=== PATIENT | female | born 1950 | race Caucasian/White ===

== ENCOUNTER 2022-12-10 06:19 | Inpatient (IN) | payer MEDICARE, SELFPAY ==
[2022-12-10] MEDS ORDERED: Diltiazem 125 MG/25 ML SDV ONE (06:39)
[2022-12-10] MEDS ORDERED: methylPREDNISolone Sod Succ/PF 125 MG/2 ML VIAL ONE ×2 (06:44→08:47)
[2022-12-10 06:56] LABS: Actual Bicarbonate (HCO3v) 18.8 mEq/L (22-28); Calcium, Ionized (venous) 0.99 mmol/L (1.16-1.32); Chloride (VBG) 104 mmol/L (98-106); Hematocrit-VBG 44 % (36.0-47.0); Hemoglobin (Hb) 14.9 g/dL (11.7-16.1); Potassium (VBG) 3.88 mmol/L (3.70-5.30); Sodium 133.4 mmol/L (133-146); pH (venous) 7.432 (7.32-7.43)
[2022-12-10] MEDS ORDERED: Ipratropium/Albuterol 3 ML NEB ONE (07:01)
[2022-12-10 07:06] LABS: #Eosinphils 0.6 thou/uL (0.0-0.7); #Monocytes 0.7 thou/uL (0.11-0.59); #Neutrophils 5.9 thou/uL (1.40-6.50); %Basophils 0.3 % (0.0-1.0); %Eosinophils 6.4 % (0.0-10.0); %Lymphocytes 21.7 % (21.0-51.0); %Monocytes 7.7 % (0.0-10.0); %Neutrophils 63.8 % (42.0-75.0); Hemoglobin 14.7 g/dL (12.0-16.0); Mean Corpuscular HGB CONC 34.4 g/dL (32.0-36.0); Mean Corpuscular Hemoglobin 32.3 pg (27.0-31.0); Mean Corpuscular Volume 94.1 fl (78.0-98.0); Mean Platelet Volume 7.2 fL (7.4-10.4); Platelet Count 190 10x3/uL (130-400); RBC Distribution Width 12.2 % (11.5-14.5); Red Blood Cell (RBC) Count 4.54 mill/uL (4.20-5.40); White Blood Cell (WBC) Count 9.3 10x3/uL (4.8-10.8)
[2022-12-10 07:07] LABS: ALT (SGPT) 9 U/L (8-55); AST (SGOT) 16 U/L (5-34); Albumin 3.8 g/dL (3.4-4.8); Alkaline Phosphatase 89 U/L (40-110); Anion Gap 15 mmol/L (10-20); BUN (Urea Nitrogen) 29 mg/dL (9.8-20.1); Bilirubin, Total 0.3 mg/dL (0.2-1.2); CK (CPK) 31 U/L (29-168); Calc. Creatinine Clearance 0 mL/min (70-130); Calcium 8.6 mg/dL (7.8-10.44); Carbon Dioxide 21 mmol/L (23-31); Chloride 106 mmol/L (98-107); Estimated GFR 37; Glucose 121 mg/dL (83-110); Potassium 4.1 mmol/L (3.5-5.1); Protein, Total 5.8 g/dL (5.8-8.1); Sodium 138 mmol/L (136-145)
[2022-12-10 07:08] LABS: Acetaminophen Less than 10.0 mcg/mL (10.0-30.0); Alcohol Less than 10 mg/dL (Less than 10); Salicylate Less than 8.0 mg/dL (15.0-30.0)
[2022-12-10 07:11] LABS: INR-International Normal Ratio 0.9; PTT 24.9 sec (22.9-36.1)
[2022-12-10 07:28] LABS: CKMB 1.4 ng/mL (0-6.6)
[2022-12-10 07:30] LABS: Bilirubin Negative (Negative); Blood, Urine Negative (Negative); Clarity Clear (Clear); Glucose, Urine (Dipstick) Normal (Negative); Ketone, Urine Negative (Negative); Leukocyte Negative Leu/uL (Negative); Nitrite Negative (Negative); Protein, Urine (Dipstick) Negative (Neg-Trace); Specific Gravity, Urine 1.025 (1.002-1.036); Urobilinogen Normal mg/dL (Less than 2); pH, Urine 5.5 (5.0-9.0)
[2022-12-10 07:41] LABS: Amphetamine Not Detected (NotDetected); Barbiturates Screen Not Detected (NotDetected); Benzodiazepine Screen Not Detected (NotDetected); Cocaine Metabolite Screen Not Detected (NotDetected); Methadone Not Detected (NotDetected); Methamphetamine Not Detected (NotDetected); Opiate Screen Not Detected (NotDetected); Oxycodone Screen Not Detected (NotDetected); Phencyclidine (PCP) Not Detected (NotDetected); THC/Cannabinoid Screen Not Detected (NotDetected); Tricyclic Screen Not Detected (NotDetected)
[2022-12-10 08:22] LABS: Actual Bicarbonate (HCO3a) 22.4 mEq/L (22-28); Analyzer IN Cardio ER; Base Excess (BEa) -3.4 mEq/L (-2.0 to +3.0); CO2 Tension 42.6 mmHg (35.0-45.0); Calcium, Ionized (arterial) 1.19 mmol/L (1.12-1.30); Carboxyhemoglobin (COHb) 3.7 gm% (0.0-3.0); Hematocrit-ABG 46 % (36.0-47.0); Hemoglobin (Hb) 15.5 g/dL (12.0-16.0); O2 Tension (PaO2), arterial 73.9 mmHg (> 70.0); Potassium - ABG Lab 4.09 mmol/L (3.70-5.30); pH, Arterial 7.338 (7.35-7.45)
[2022-12-10 08:25] LABS: Puncture Site RRA
[2022-12-10] MEDS ORDERED: Iopamidol 370 76% 100 ML VIAL ONE (08:49)
[2022-12-10 09:48] LABS: Hemoglobin A1c 5.1 % (4.0-6.0)
[2022-12-10] MEDS ORDERED: hydrALAZINE 20 MG/ML VIAL SLOW IVP PRN (10:04)
[2022-12-10 10:09] LABS: Cardiac Risk 3.1 (Less than 4.5); Cholesterol 116 mg/dl (< 200 Desired); HDL Cholesterol 38 mg/dL (>60 Neg Risk); LDL Cholesterol, Calculated 61 mg/dL; Phosphorus 3.3 mg/dL (2.3-4.7); Triglycerides 85 mg/dL (Less than 150)
[2022-12-10] MEDS ORDERED: Ipratropium/Albuterol 3 ML NEB NEB PRN (10:15)
[2022-12-10 11:18] LABS: Troponin I 0.064 ng/mL (< 0.028)
[2022-12-10 13:46] LABS: Troponin I 0.056 ng/mL (< 0.028)
[2022-12-10] MEDS: Lactated Ringer's 1,000 ML IV SCH (16:20)
[2022-12-10] MEDS: Ipratropium/Albuterol 3 ML NEB NEB SCH (18:38)
[2022-12-10] MEDS: Mometasone 100 MCG HFA INHALER (RT USE) INH SCH (18:48)
[2022-12-10] MEDS ORDERED: Ipratropium Bromide 2.5 ml Neb NEB SCH (19:00)
[2022-12-10] MEDS: Metoprolol Tartrate 25 MG TAB PO SCH (21:49)
[2022-12-10] MEDS: Atorvastatin Calcium 40 MG TAB PO SCH (21:49)
[2022-12-10] MEDS ORDERED: Scopolamine 1.5 mg/72 hour Patch TD SCH (23:45)
[2022-12-11] MEDS: Ipratropium/Albuterol 3 ML NEB NEB SCH ×4 (00:11→19:04)
[2022-12-11 03:56] LABS: Anion Gap 15 mmol/L (10-20); BUN (Urea Nitrogen) 22 mg/dL (9.8-20.1); Calc. Creatinine Clearance 42 mL/min (70-130); Carbon Dioxide 21 mmol/L (23-31); Chloride 108 mmol/L (98-107); Potassium 4.1 mmol/L (3.5-5.1); Sodium 140 mmol/L (136-145)
[2022-12-11 03:57] LABS: Calcium 9.5 mg/dL (7.8-10.44); Estimated GFR 43; Glucose 159 mg/dL (83-110)
[2022-12-11 04:04] LABS: #Lymphocytes 0.7 thou/uL (1.20-3.40); #Monocytes 0.3 thou/uL (0.11-0.59); #Neutrophils 6.9 thou/uL (1.40-6.50); %Basophils 0.2 % (0.0-1.0); %Eosinophils 0.2 % (0.0-10.0); %Lymphocytes 8.6 % (21.0-51.0); %Monocytes 4.1 % (0.0-10.0); Mean Corpuscular HGB CONC 33.6 g/dL (32.0-36.0); Mean Corpuscular Hemoglobin 31.3 pg (27.0-31.0); Mean Corpuscular Volume 93.3 fl (78.0-98.0); Mean Platelet Volume 7.5 fL (7.4-10.4); Platelet Count 194 10x3/uL (130-400); RBC Distribution Width 12.4 % (11.5-14.5); Red Blood Cell (RBC) Count 4.48 mill/uL (4.20-5.40); White Blood Cell (WBC) Count 7.9 10x3/uL (4.8-10.8)
[2022-12-11] MEDS: Lactated Ringer's 1,000 ML IV SCH (06:51)
[2022-12-11] MEDS: Mometasone 100 MCG HFA INHALER (RT USE) INH SCH (07:25)
[2022-12-11] MEDS ORDERED: Pravastatin Sodium 40 MG TAB PO SCH (09:00)
[2022-12-11] MEDS ORDERED: Iopamidol 370 76% 100 ML VIAL ONE (09:25)
[2022-12-11] MEDS: Aspirin 325 mg Enteric Coated Tablet PO SCH (09:49)
[2022-12-11] MEDS: Citalopram 20 MG TAB PO SCH (09:49)
[2022-12-11] MEDS: Metoprolol Tartrate 25 MG TAB PO SCH ×2 (09:50→21:18)
[2022-12-11] MEDS: Propylthiouracil 50 MG TAB PO SCH (09:50)
[2022-12-11] MEDS ORDERED: Furosemide 20 MG TAB PO SCH (11:00)
[2022-12-11] MEDS ORDERED: Ondansetron PF 4 MG/2 ML Vial IVP PRN (12:26)
[2022-12-11] MEDS: Atorvastatin Calcium 40 MG TAB PO SCH (21:18)
[2022-12-12] MEDS: Ipratropium/Albuterol 3 ML NEB NEB SCH ×4 (00:31→19:15)
[2022-12-12] MEDS: Mometasone 100 MCG HFA INHALER (RT USE) INH SCH ×2 (07:41→19:17)
[2022-12-12 08:00] LABS: #Basophils 0.1 thou/uL (0.0-0.2); #Lymphocytes 1.7 thou/uL (1.20-3.40); #Monocytes 0.7 thou/uL (0.11-0.59); #Neutrophils 7.1 thou/uL (1.40-6.50); %Basophils 0.6 % (0.0-1.0); %Eosinophils 0.4 % (0.0-10.0); %Lymphocytes 17.8 % (21.0-51.0); %Monocytes 7.4 % (0.0-10.0); %Neutrophils 73.8 % (42.0-75.0); Hemoglobin 13.6 g/dL (12.0-16.0); Mean Corpuscular HGB CONC 33.6 g/dL (32.0-36.0); Mean Corpuscular Hemoglobin 31.5 pg (27.0-31.0); Mean Corpuscular Volume 93.6 fl (78.0-98.0); Mean Platelet Volume 7.4 fL (7.4-10.4); Platelet Count 200 10x3/uL (130-400); RBC Distribution Width 12.5 % (11.5-14.5); Red Blood Cell (RBC) Count 4.32 mill/uL (4.20-5.40); White Blood Cell (WBC) Count 9.6 10x3/uL (4.8-10.8)
[2022-12-12 08:19] LABS: Anion Gap 13 mmol/L (10-20); BUN (Urea Nitrogen) 30 mg/dL (9.8-20.1); Calc. Creatinine Clearance 39 mL/min (70-130); Calcium 9.3 mg/dL (7.8-10.44); Carbon Dioxide 24 mmol/L (23-31); Chloride 108 mmol/L (98-107); Estimated GFR 40; Glucose 88 mg/dL (83-110); Potassium 4.2 mmol/L (3.5-5.1); Sodium 141 mmol/L (136-145)
[2022-12-12] MEDS: Furosemide 20 MG TAB PO SCH (09:23)
[2022-12-12] MEDS: Aspirin 325 mg Enteric Coated Tablet PO SCH (09:24)
[2022-12-12] MEDS: Citalopram 20 MG TAB PO SCH (09:24)
[2022-12-12] MEDS: Metoprolol Tartrate 25 MG TAB PO SCH ×2 (09:24→20:41)
[2022-12-12] MEDS: Propylthiouracil 50 MG TAB PO SCH (09:24)
[2022-12-12] MEDS: Loratadine 10 MG TAB PO SCH (09:24)
[2022-12-12] MEDS: Atorvastatin Calcium 40 MG TAB PO SCH (20:42)
[2022-12-13] MEDS: Ipratropium/Albuterol 3 ML NEB NEB SCH ×3 (00:01→11:37)
[2022-12-13 06:10] LABS: #Eosinphils 0.3 thou/uL (0.0-0.7); #Lymphocytes 1.3 thou/uL (1.20-3.40); #Monocytes 0.8 thou/uL (0.11-0.59); #Neutrophils 5.7 thou/uL (1.40-6.50); %Basophils 0.5 % (0.0-1.0); %Eosinophils 3.1 % (0.0-10.0); %Lymphocytes 16.4 % (21.0-51.0); %Monocytes 10.2 % (0.0-10.0); %Neutrophils 69.8 % (42.0-75.0); Mean Corpuscular HGB CONC 33.1 g/dL (32.0-36.0); Mean Corpuscular Hemoglobin 31.2 pg (27.0-31.0); Mean Corpuscular Volume 94.1 fl (78.0-98.0); Mean Platelet Volume 7.4 fL (7.4-10.4); Platelet Count 185 10x3/uL (130-400); RBC Distribution Width 12.2 % (11.5-14.5); Red Blood Cell (RBC) Count 4.17 mill/uL (4.20-5.40); White Blood Cell (WBC) Count 8.1 10x3/uL (4.8-10.8)
[2022-12-13 06:22] LABS: Anion Gap 15 mmol/L (10-20); BUN (Urea Nitrogen) 30 mg/dL (9.8-20.1); Calc. Creatinine Clearance 17 mL/min (70-130); Calcium 8.8 mg/dL (7.8-10.44); Carbon Dioxide 23 mmol/L (23-31); Chloride 107 mmol/L (98-107); Estimated GFR 40; Glucose 86 mg/dL (83-110); Potassium 3.9 mmol/L (3.5-5.1); Sodium 141 mmol/L (136-145)
[2022-12-13] MEDS: Mometasone 100 MCG HFA INHALER (RT USE) INH SCH (06:24)
[2022-12-13] MEDS ORDERED: Tamsulosin HCl 0.4 MG CAP PO SCH (09:00)
[2022-12-13] MEDS ORDERED: Losartan 25 MG TAB PO SCH (09:00)
[2022-12-13] MEDS: Loratadine 10 MG TAB PO SCH (10:02)
[2022-12-13] MEDS: Aspirin 325 mg Enteric Coated Tablet PO SCH (10:02)
[2022-12-13] MEDS: Metoprolol Tartrate 25 MG TAB PO SCH (10:02)
[2022-12-13] MEDS: Furosemide 20 MG TAB PO SCH (10:02)
[2022-12-13] MEDS: Propylthiouracil 50 MG TAB PO SCH (10:02)
[2022-12-13 10:15] VITALS: BMI 27.8
[2022-12-13 15:31] VITALS: BP 113/63; TEMP 97.3
[2022-12-13] MEDS ORDERED: Citalopram 20 MG TAB PO SCH (21:00)
== END 2022-12-13 15:45 | disposition home health service (06) | DRG 64 ==
LOC: ERS 06:19 → CCU 09:19 → NEURO 12-11 15:06
PROVIDERS: ADMIT Family Medicine; ATTEND Family Medicine
PROC: 4A133R1 Monitoring of Arterial Saturation, Peripheral, Percutaneous Approach (ICD-10-PCS; principal; 2022-12-10)
DX: I63.512 Cerebral infarction due to unspecified occlusion or stenosis of left middle cerebral artery (principal); G93.6 Cerebral edema; J96.01 Acute respiratory failure with hypoxia; N17.9 Acute kidney failure, unspecified; I16.1 Hypertensive emergency; G81.91 Hemiplegia, unspecified affecting right dominant side; E04.1 Nontoxic single thyroid nodule; E05.90 Thyrotoxicosis, unspecified without thyrotoxic crisis or storm; R91.8 Other nonspecific abnormal finding of lung field; I27.20 Pulmonary hypertension, unspecified; N18.9 Chronic kidney disease, unspecified; J44.9 Chronic obstructive pulmonary disease, unspecified; I12.9 Hypertensive chronic kidney disease with stage 1 through stage 4 chronic kidney disease, or unspecified chronic kidney disease; F32.A Depression, unspecified; R29.714 NIHSS score 14; F41.9 Anxiety disorder, unspecified; I16.0 Hypertensive urgency; R47.1 Dysarthria and anarthria; Z88.2 Allergy status to sulfonamides; Z88.6 Allergy status to analgesic agent; Z91.013 Allergy to seafood
CPT/HCPCS: 36415; 36416; 36600; 51701; 70450; 70496; 70498; 70551; 71045; 71260; 74230; 76536; 80048; 80053; 80061; 80306; 80307; 81003; 82550; 82553; 82805; 83036; 83605; 83735; 83880; 84100; 84439; 84443; 84480; 84484; 85025; 85610; 85730; 86850; 86900; 86901; 93005; 93306; 94640; 94660; 94760; 96365; 96366; 96375; J1650; J2405; J2930; J7120; J7620; Q9967

== ENCOUNTER 2023-09-19 02:45 | Observation (INO) | payer MEDICARE ==
[2023-09-19 03:24] LABS: #Monocytes 0.5 thou/uL (0.11-0.59); #Neutrophils 7.9 thou/uL (1.40-6.50); %Basophils 0.2 % (0.0-1.0); %Lymphocytes 8.6 % (21.0-51.0); %Monocytes 5.4 % (0.0-10.0); %Neutrophils 84.9 % (42.0-75.0); Hematocrit 41.3 % (36.0-47.0); Hemoglobin 13.3 g/dL (12.0-16.0); Mean Corpuscular HGB CONC 32.2 g/dL (32.0-36.0); Mean Corpuscular Hemoglobin 30.6 pg (27.0-31.0); Mean Corpuscular Volume 94.9 fl (78.0-98.0); Mean Platelet Volume 9.5 fL (7.4-10.4); Platelet Count 222 10x3/uL (130-400); RBC Distribution Width 14.8 % (11.5-14.5); Red Blood Cell (RBC) Count 4.35 mill/uL (4.20-5.40); White Blood Cell (WBC) Count 9.3 10x3/uL (4.8-10.8)
[2023-09-19 03:48] LABS: ALT (SGPT) 17 U/L (8-55); AST (SGOT) 16 U/L (5-34); Albumin 3.5 g/dL (3.4-4.8); Alkaline Phosphatase 97 U/L (40-110); Anion Gap 12 mmol/L (10-20); BUN (Urea Nitrogen) 37 mg/dL (9.8-20.1); Bilirubin, Total 0.2 mg/dL (0.2-1.2); Calc. Creatinine Clearance 0 mL/min (70-130); Calcium 8.7 mg/dL (7.8-10.44); Carbon Dioxide 21 mmol/L (23-31); Chloride 110 mmol/L (98-107); Estimated GFR 30; Globulin 2.2 g/dL (2.4-3.5); Glucose 161 mg/dL (83-110); Potassium 3.9 mmol/L (3.5-5.1); Protein, Total 5.7 g/dL (5.8-8.1); Sodium 139 mmol/L (136-145)
[2023-09-19 03:58] LABS: Troponin I 0.035 ng/mL (< 0.028)
[2023-09-19] MEDS ORDERED: Aspirin Chewable 81 MG TAB ONE (05:13)
[2023-09-19] MEDS ORDERED: Ondansetron ODT 4 MG TAB SL PRN (06:00)
[2023-09-19] MEDS ORDERED: Ondansetron PF 4 MG/2 ML Vial IVP PRN ×2 (06:00→10:37)
[2023-09-19] MEDS ORDERED: Acetaminophen 325 MG TAB PO PRN ×2 (06:00→10:55)
[2023-09-19 06:43] VITALS: BMI 26.4
[2023-09-19 07:01] LABS: Troponin I 0.035 ng/mL (< 0.028)
[2023-09-19 09:29] LABS: Troponin I 0.034 ng/mL (< 0.028)
[2023-09-19] MEDS ORDERED: Senokot S 8.6-50 MG TAB PO PRN (10:37)
[2023-09-19] MEDS ORDERED: Ondansetron ODT 4 MG TAB PO PRN (10:37)
[2023-09-19] MEDS ORDERED: hydrALAZINE 20 MG/ML VIAL SLOW IVP PRN (10:37)
[2023-09-19] MEDS ORDERED: Calcium Carbonate 500 MG ChewTAB PO PRN (10:37)
[2023-09-19] MEDS: Albuterol 200 PUFF (6.7GM INHALER) INH SCH (12:10)
[2023-09-19] MEDS: Ipratropium/Albuterol 3 ML NEB NEB SCH (12:18)
[2023-09-19] MEDS: Heparin 5,000 UNITS/ML VIAL SC SCH (15:01)
[2023-09-19] MEDS: Methimazole 5 MG TAB PO SCH ×2 (16:37→18:41)
[2023-09-19] MEDS: Mometasone 100 MCG HFA INHALER (RT USE) INH SCH (18:28)
[2023-09-19] MEDS: Atorvastatin Calcium 40 MG TAB PO SCH (20:57)
[2023-09-19] MEDS: Citalopram 20 MG TAB PO SCH (20:57)
[2023-09-19] MEDS: Aspirin-Dipyridamole 200-25mg CAP PO SCH (20:57)
[2023-09-20] MEDS: traMADol HCl 50 MG TAB PO PRN (04:01)
[2023-09-20 05:37] LABS: #Eosinphils 0.1 thou/uL (0.0-0.7); #Monocytes 0.8 thou/uL (0.11-0.59); #Neutrophils 6.8 thou/uL (1.40-6.50); %Basophils 0.3 % (0.0-1.0); %Eosinophils 0.6 % (0.0-10.0); %Lymphocytes 19.4 % (21.0-51.0); %Monocytes 7.9 % (0.0-10.0); Hematocrit 36.5 % (36.0-47.0); Hemoglobin 11.6 g/dL (12.0-16.0); Mean Corpuscular HGB CONC 31.8 g/dL (32.0-36.0); Mean Corpuscular Hemoglobin 30.8 pg (27.0-31.0); Mean Corpuscular Volume 96.8 fl (78.0-98.0); Mean Platelet Volume 9.5 fL (7.4-10.4); Platelet Count 210 10x3/uL (130-400); RBC Distribution Width 14.8 % (11.5-14.5); Red Blood Cell (RBC) Count 3.77 mill/uL (4.20-5.40); White Blood Cell (WBC) Count 9.6 10x3/uL (4.8-10.8)
[2023-09-20 05:43] LABS: Hemoglobin A1c 5.5 % (4.0-6.0)
[2023-09-20 06:06] LABS: Anion Gap 9 mmol/L (10-20); BUN (Urea Nitrogen) 39 mg/dL (9.8-20.1); Calc. Creatinine Clearance 29 mL/min (70-130); Calcium 8.1 mg/dL (7.8-10.44); Carbon Dioxide 25 mmol/L (23-31); Cardiac Risk 2.5 (Less than 4.5); Chloride 113 mmol/L (98-107); Cholesterol 92 mg/dl (< 200 Desired); Estimated GFR 32; Glucose 103 mg/dL (83-110); HDL Cholesterol 37 mg/dL (>60 Neg Risk); LDL Cholesterol, Calculated 40 mg/dL; Magnesium 2.1 mg/dL (1.6-2.6); Potassium 3.2 mmol/L (3.5-5.1); Sodium 144 mmol/L (136-145); Triglycerides 77 mg/dL (Less than 150)
[2023-09-20] MEDS ORDERED: Non-Formulary Item 1 EACH (Fluticasone/Umeclidin/Vilanter [Trelegy Ellipta 100-62.5-25] 1 INH SCH (09:00)
[2023-09-20] MEDS ORDERED: Aspirin 325 mg Enteric Coated Tablet PO SCH (09:00)
[2023-09-20] MEDS ORDERED: Non-Formulary Item 1 EACH (Fexofenadine Hcl [Fexofenadine Hcl] 180 MG Tablet) PO SCH (09:00)
[2023-09-20] MEDS: Potassium Chloride 20 MEQ TAB PO SCH (09:04)
[2023-09-20] MEDS: Loratadine 10 MG TAB PO SCH (09:04)
[2023-09-20] MEDS: Potassium Bicarbonate/Cit Ac 20 MEQ TAB PO SCH (10:57)
[2023-09-20] MEDS: Methimazole 5 MG TAB PO SCH (10:59)
[2023-09-20 11:26] VITALS: TEMP 97.8
[2023-09-20 12:54] VITALS: BP 174/78
== END 2023-09-20 13:41 | disposition home or self-care (01) ==
LOC: ERS 02:45 → ERHOLD 05:41 → 2SE 14:29
PROVIDERS: ADMIT Family Medicine; ATTEND Nurse Practitioner Acute Care
DX: R29.818 Other symptoms and signs involving the nervous system (principal); I08.8 Other rheumatic multiple valve diseases; J44.9 Chronic obstructive pulmonary disease, unspecified; E03.9 Hypothyroidism, unspecified; N17.9 Acute kidney failure, unspecified; I12.9 Hypertensive chronic kidney disease with stage 1 through stage 4 chronic kidney disease, or unspecified chronic kidney disease; N18.30 Chronic kidney disease, stage 3 unspecified; F32.A Depression, unspecified; F41.9 Anxiety disorder, unspecified; F17.210 Nicotine dependence, cigarettes, uncomplicated; Z86.73 Personal history of transient ischemic attack (TIA), and cerebral infarction without residual deficits; Z91.013 Allergy to seafood; Z88.5 Allergy status to narcotic agent; Z88.2 Allergy status to sulfonamides; Z88.8 Allergy status to other drugs, medicaments and biological substances; Z88.6 Allergy status to analgesic agent; Z79.82 Long term (current) use of aspirin; Z79.899 Other long term (current) drug therapy
CPT/HCPCS: 36415; 70450; 70551; 80048; 80053; 80061; 83036; 83735; 84443; 84484; 85025; 93005; 93306; 94640; G0378; J7620